=== PATIENT | female | born 1990 | race Hispanic/Latino ===

== ENCOUNTER 2019-06-05 18:41 | Emergency (ER) | payer MEDICAID ==
[2019-06-05 19:35] LABS: APPEARANCE,URINE Cloudy (CLEAR); BILIRUBIN,URINE Negative (NEGATIVE); COLOR,URINE Dark Yellow (YELLOW); GLUCOSE, URINE (UA) Negative (NEGATIVE); KETONES,URINE Negative (NEGATIVE); LEUKOCYTE ESTERASE ,URINE Small (NEGATIVE); NITRATE,URINE Negative (NEGATIVE); OCCULT BLOOD,URINE Negative (NEGATIVE); PH,URINE 6.5 (5.0-8.0); PROTEIN,URINE Negative (NEGATIVE)
[2019-06-05 19:42] LABS: RBC,URINE 0-1 /HPF (0-1)
[2019-06-05 19:43] LABS: BACTERIA,URINE Few /HPF (None Seen)
[2019-06-05 19:44] LABS: SQUAMOUS EPITHELIAL CELL,UR Few /HPF (0-2)
[2019-06-05] MEDS ORDERED: ACETAMINOPHEN 325 MG TAB ONE (19:44)
[2019-06-05 19:46] LABS: AMORPHOUS SEDIMENT,UR Moderate /LPF (None Seen)
== END 2019-06-05 20:29 | disposition home or self-care (01) ==
LOC: EDH 18:41
DX: O23.42 Unspecified infection of urinary tract in pregnancy, second trimester (principal); Z3A.19 19 weeks gestation of pregnancy
CPT/HCPCS: 81001; 87088

== ENCOUNTER 2020-03-04 20:43 | Emergency (ER) | payer MEDICAID ==
[2020-03-04] MEDS ORDERED: KETOROLAC TROMETHAMINE 30MG/ML ONE (22:28)
[2020-03-04] MEDS ORDERED: ORPHENADRINE CITRATE 30 MG/ML ML ONE (22:28)
== END 2020-03-04 23:13 | disposition home or self-care (01) ==
LOC: EDH 20:43
DX: M54.5 Low back pain (principal); W18.39XA Other fall on same level, initial encounter; Y93.89 Activity, other specified; Y92.89 Other specified places as the place of occurrence of the external cause; Y99.8 Other external cause status
CPT/HCPCS: 96372 ×2; 99284; J1885; J2360

== ENCOUNTER 2021-08-21 22:57 | Emergency (ER) | payer MEDICAID ==
[~2021-08-21] VITALS: Ht 157.5 cm; Wt 54.4 kg
[2021-08-21 23:35] LABS: BASOPHILS % (AUTO) 0.3 % (0.0-5.0); EOSINOPHILS % (AUTO) 0.6 % (0.0-8.0); HEMATOCRIT 32.8 % (36-48); LYMPHOCYTES % (AUTO) 19.7 % (21.0-51.0); MEAN CORPUSCULAR HEMOGLOBIN 24.2 pg (27.0-33.0); MEAN CORPUSCULAR VOLUME 75.8 fL (79-99); MONOCYTES % (AUTO) 6.9 % (3.0-13.0); NEUTROPHILS % (AUTO) 72.2 % (40.0-77.0); PLATELET COUNT (AUTO) 251 K/uL (130-400); RED BLOOD CELL COUNT(AUTO) 4.33 MIL/uL (4.00-5.50); RED CELL DISTRIBUTION WIDTH 14.1 % (11.0-15.5)
[2021-08-21 23:55] LABS: CREATININE 0.5 mg/dL (0.5-1.5); POTASSIUM 3.3 mmol/L (3.5-5.1)
[2021-08-22 00:28] LABS: ALBUMIN 3.2 g/dL (3.5-5.0); TOTAL PROTEIN, SERUM 7.1 g/dL (6.0-8.3)
[2021-08-22 01:34] VITALS: BP 105/66
== END 2021-08-22 01:55 | disposition home or self-care (01) ==
LOC: EDH 22:57
DX: O03.9 Complete or unspecified spontaneous abortion without complication (principal); Z3A.08 8 weeks gestation of pregnancy
CPT/HCPCS: 36415; 76801; 80053; 84702; 84703; 85025; 86900; 86901

== ENCOUNTER 2022-03-25 20:03 | Emergency (ER) | payer MEDICAID ==
[~2022-03-25] VITALS: Ht 157.5 cm; Wt 56.7 kg
[2022-03-25 22:03] VITALS: BP 134/74
[2022-03-25] MEDS ORDERED: KETO10TA2 PO (22:12)
[2022-03-25] MEDS ORDERED: CYCL5TAB PO (22:12)
[2022-03-25] MEDS ORDERED: KETOROLAC 30MG VIAL (30MG/ML) IM ONE (22:30)
== END 2022-03-25 22:32 | disposition home or self-care (01) ==
LOC: EDH 20:03
DX: M62.830 Muscle spasm of back (principal)
CPT/HCPCS: 99284; 96372; J1885